=== PATIENT | male | born 1955 | race Asian ===

== ENCOUNTER 2024-01-18 16:46 | Inpatient (IN) | payer OTHER ==
[~2024-01-18] VITALS: Ht 182.9 cm; Wt 78.5 kg
[2024-01-18] MEDS: SODIUM CHLORIDE 0.9% 1,000 ML IV ONE ×2 (17:00→20:08)
[2024-01-18 17:39] LABS: BASOPHILS % 0.3 % (0.0-2.0); EOSINOPHILS % 0.5 % (0.0-5.0); HEMATOCRIT. 40.3 % (42.0-52.0); HEMOGLOBIN. 13.5 g/dL (14.0-18.0); LYMPHOCYTES % 7.4 % (20.0-50.0); MEAN CORPUSCULAR HEMOGLOBIN 31.9 pg (28.0-32.0); MEAN CORPUSCULAR HGB CONC 33.4 g/dL (31.0-37.0); MEAN CORPUSCULAR VOLUME 95.4 fL (80.0-94.0); MEAN PLATELET VOLUME 8.7 fl (7.4-10.4); MONOCYTES % 5.1 % (2.0-8.0); NEUTROPHILS % 86.7 % (40.0-76.0); PLATELET 171 x1000/uL (130-400); RED BLOOD CELL COUNT 4.23 mill/uL (4.7-6.1); RED CELL DISTRIBUTION WIDTH 14.9 % (11.6-14.6); WHITE BLOOD COUNT 8.1 x1000/uL (4.5-11.0)
[2024-01-18 17:44] LABS: CARBON DIOXIDE 25 mEq/L (21-32); CHLORIDE 103 mEq/L (98-107); POTASSIUM 3.4 mEq/L (3.5-5.1); SODIUM 136 mEq/L (136-145)
[2024-01-18 17:45] LABS: CALCIUM 10.2 mg/dL (8.7-10.4)
[2024-01-18 17:49] LABS: CREATININE 1.9 mg/dL (0.6-1.3); GLUCOSE 183 mg/dL (70-105)
[2024-01-18 17:50] LABS: UREA NITROGEN BLOOD 30 mg/dL (9-23)
[2024-01-18 17:51] LABS: ALANINE AMINOTRANSFERASE 12 IU/L (10-49); ALBUMIN 4.9 g/dL (3.2-4.8); ASPARTATE AMINOTRANSFERASE 21 IU/L (<34)
[2024-01-18 17:52] LABS: BILIRUBIN TOTAL 0.7 mg/dL (0.1-1.0); LACTIC ACID 2.5 mmol/L (0.4-2.0); PROTEIN TOTAL 7.9 g/dL (6.0-8.3); TROPONIN I HIGH SENSITIVITY 10 ng/L (3.0-53)
[2024-01-18] MEDS: PIPERACILLIN/TAZO 3.375G/50ML 50 ML IV SCH (18:47)
[2024-01-18] MEDS: VANCOMYCIN 1G PREMIX 200 ML IV SCH (19:58)
[2024-01-18] MEDS: ACETAMINOPHEN 325MG TABLET PO ONE (20:07)
[2024-01-18] MEDS: SODIUM CHLORIDE 0.9% 500 ML IV ONE (20:09)
[2024-01-18] MEDS ORDERED: ZOLPIDEM TARTRATE 5MG TABLET PO PRN (20:15)
[2024-01-18] MEDS ORDERED: ONDANSETRON HCL 4MG/2ML INJ IV PRN (20:15)
[2024-01-18] MEDS ORDERED: MAGNESIUM/ALUMINUM HYDROXIDE/SIMETHICONE 30ML UDC PO PRN (20:15)
[2024-01-18] MEDS ORDERED: CLONIDINE 0.1MG TABLET PO PRN (20:15)
[2024-01-18] MEDS ORDERED: NITROGLYCERIN 0.4MG TABLET SL SL PRN (20:15)
[2024-01-18] MEDS ORDERED: IPRATROPIUM/ALBUTEROL 0.5-3(2.5)MG/3ML NEB NEB PRN (20:15)
[2024-01-18] MEDS ORDERED: DOCUSATE SODIUM 100MG CAPSULE PO PRN (20:15)
[2024-01-18 20:58] LABS: IRON 24 ug/dL (65-175)
[2024-01-18 20:59] LABS: CREATINE KINASE MB FRACTION < 0.5 ng/mL (0.5-3.6); TRIGLYCERIDE 73 mg/dL (0-150)
[2024-01-18 21:00] LABS: LDL CHOLESTEROL 57 mg/dL (5-100)
[2024-01-18] MEDS: LISINOPRIL 20MG TABLET PO SCH (21:00)
[2024-01-18 21:01] LABS: CHOLESTEROL 151 mg/dL (<200); CREATINE KINASE 108 IU/L (46-171); HDL CHOLESTEROL 58 mg/dL (>55); TOTAL IRON BINDING CAPACITY 188 ug/dl (250-425)
[2024-01-18 21:03] LABS: FOLIC ACID (FOLATE) SERUM 13.66 ng/mL (>5.38)
[2024-01-18 21:04] LABS: THYROID STIMULATING HORMONE 0.42 uIU/mL (0.55-4.78)
[2024-01-18 21:06] LABS: VITAMIN B12 SERUM 457 pg/mL (211-911)
[2024-01-18] MEDS: GUAIFENESIN 600MG ER TABLET PO SCH (22:35)
[2024-01-18] MEDS: FAMOTIDINE 20MG TABLET PO SCH (22:35)
[2024-01-18] MEDS: ASCORBIC ACID 500 MG TABLET PO SCH (22:35)
[2024-01-18] MEDS: ENOXAPARIN 40MG/0.4ML SYR SUBCUT SCH (22:40)
[2024-01-18] MEDS: POTASSIUM CHLORIDE 20MEQ TABLET SR PO NR (22:41)
[2024-01-18] MEDS: VANCOMYCIN 1GM/200ML PMX (BAXTER) IV NR (22:53)
[2024-01-18] MEDS: INSULIN GLARGINE 100 UNITS/ML SUBCUT SCH (23:09)
[2024-01-18] MEDS: LACTATED RINGERS 1,000 ML IV SCH (23:10)
[2024-01-18 23:54] LABS: CREATINE KINASE 103 IU/L (46-171)
[2024-01-18 23:56] LABS: CREATINE KINASE MB FRACTION < 0.5 ng/mL (0.5-3.6); TROPONIN I HIGH SENSITIVITY 19 ng/L (3.0-53)
[2024-01-19] VITALS (14 sets, daily range): BP systolic 93–136; BP diastolic 47–78; PULSE 83–120; RESP 15–19; TEMP 36.28068–38.66976; O2SAT 94–99
[2024-01-19] MEDS: PIPERACILLIN/TAZO 3.375G/50ML 50 ML IV SCH (01:19)
[2024-01-19] MEDS: ACETAMINOPHEN 325MG TABLET PO PRN ×2 (04:14→23:50)
[2024-01-19 05:40] LABS: CHLORIDE 108 mEq/L (98-107); POTASSIUM 3.7 mEq/L (3.5-5.1); SODIUM 139 mEq/L (136-145)
[2024-01-19 05:44] LABS: CALCIUM 8.8 mg/dL (8.7-10.4); CARBON DIOXIDE 24 mEq/L (21-32)
[2024-01-19 05:49] LABS: CREATININE 1.7 mg/dL (0.6-1.3); GLUCOSE 70 mg/dL (70-105); UREA NITROGEN BLOOD 27 mg/dL (9-23)
[2024-01-19 05:50] LABS: ALANINE AMINOTRANSFERASE 16 IU/L (10-49); ASPARTATE AMINOTRANSFERASE 24 IU/L (<34)
[2024-01-19 05:51] LABS: ALBUMIN 3.7 g/dL (3.2-4.8); BILIRUBIN TOTAL 0.8 mg/dL (0.1-1.0); PHOSPHORUS 2.3 mg/dL (2.5-4.9)
[2024-01-19 05:52] LABS: PROTEIN TOTAL 6.1 g/dL (6.0-8.3)
[2024-01-19 06:19] LABS: BASOPHILS % 0.3 % (0.0-2.0); CREATINE KINASE MB FRACTION 0.5 ng/mL (0.5-3.6); EOSINOPHILS % 0.7 % (0.0-5.0); HEMATOCRIT. 34.7 % (42.0-52.0); HEMOGLOBIN. 11.6 g/dL (14.0-18.0); MEAN CORPUSCULAR HEMOGLOBIN 31.4 pg (28.0-32.0); MEAN CORPUSCULAR HGB CONC 33.3 g/dL (31.0-37.0); MEAN CORPUSCULAR VOLUME 94.2 fL (80.0-94.0); MEAN PLATELET VOLUME 9.7 fl (7.4-10.4); PLATELET 146 x1000/uL (130-400); RED BLOOD CELL COUNT 3.68 mill/uL (4.7-6.1); RED CELL DISTRIBUTION WIDTH 14.7 % (11.6-14.6); WHITE BLOOD COUNT 9.4 x1000/uL (4.5-11.0)
[2024-01-19] MEDS: LACTATED RINGERS 1,000 ML IV NR (07:00)
[2024-01-19] MEDS: INSULIN LISPRO 100 UNITS/ML SUBCUT SCH (08:00)
[2024-01-19] MEDS: BLOOD SUGAR DIAGNOSTIC STRIP TEST SCH (08:25)
[2024-01-19] MEDS: DEXTROSE 50% WATER 50ML SYRINGE IV PRN (08:36)
[2024-01-19] MEDS: ASPIRIN 81MG EC TABLET PO SCH (08:45)
[2024-01-19] MEDS ORDERED: SITA100T11 MT (10:01)
[2024-01-19] MEDS ORDERED: FLUT15.844 BOTHNSTRLS (10:01)
[2024-01-19] MEDS ORDERED: ROSU40TA MT (10:01)
[2024-01-19] MEDS ORDERED: TC1C15 TP (10:01)
[2024-01-19] MEDS ORDERED: LORA10TA7 MT (10:01)
[2024-01-19] MEDS ORDERED: LOSA1TAB34 MT (10:01)
[2024-01-19] MEDS ORDERED: TRAZ-251 MT (10:01)
[2024-01-19] MEDS ORDERED: PIOG30TA10 MT (10:01)
[2024-01-19] MEDS ORDERED: ERGO1250 (10:01)
[2024-01-19] MEDS ORDERED: EMPA10TA MT (10:01)
[2024-01-19] MEDS ORDERED: GABA-529 MT (10:01)
[2024-01-20] VITALS (12 sets, daily range): BP systolic 110–164; BP diastolic 64–91; PULSE 86–115; RESP 14–20; TEMP 36.55848–38.55864; O2SAT 93–100
[2024-01-20 06:09] LABS: CHLORIDE 111 mEq/L (98-107); POTASSIUM 3.7 mEq/L (3.5-5.1); SODIUM 142 mEq/L (136-145)
[2024-01-20 06:12] LABS: CARBON DIOXIDE 24 mEq/L (21-32)
[2024-01-20 06:13] LABS: CALCIUM 9.1 mg/dL (8.7-10.4)
[2024-01-20 06:16] LABS: BASOPHILS % 0.2 % (0.0-2.0); HEMATOCRIT. 34.6 % (42.0-52.0); HEMOGLOBIN. 11.3 g/dL (14.0-18.0); LYMPHOCYTES % 14.6 % (20.0-50.0); MEAN CORPUSCULAR HEMOGLOBIN 30.9 pg (28.0-32.0); MEAN CORPUSCULAR HGB CONC 32.6 g/dL (31.0-37.0); MEAN CORPUSCULAR VOLUME 94.7 fL (80.0-94.0); MEAN PLATELET VOLUME 9.7 fl (7.4-10.4); MONOCYTES % 8.9 % (2.0-8.0); NEUTROPHILS % 74.3 % (40.0-76.0); PLATELET 144 x1000/uL (130-400); RED BLOOD CELL COUNT 3.65 mill/uL (4.7-6.1); RED CELL DISTRIBUTION WIDTH 14.9 % (11.6-14.6); WHITE BLOOD COUNT 9.7 x1000/uL (4.5-11.0)
[2024-01-20 06:18] LABS: CREATININE 1.8 mg/dL (0.6-1.3); GLUCOSE 111 mg/dL (70-105); UREA NITROGEN BLOOD 22 mg/dL (9-23)
[2024-01-20 06:19] LABS: ALANINE AMINOTRANSFERASE 16 IU/L (10-49); ALBUMIN 3.8 g/dL (3.2-4.8); ASPARTATE AMINOTRANSFERASE 21 IU/L (<34)
[2024-01-20 06:20] LABS: BILIRUBIN TOTAL 0.6 mg/dL (0.1-1.0); PHOSPHORUS 2.8 mg/dL (2.5-4.9); PROTEIN TOTAL 6.2 g/dL (6.0-8.3)
[2024-01-20] MEDS ORDERED: VANCOMYCIN 1G PREMIX 200 ML IV SCH (09:00)
[2024-01-20] MEDS: VANCOMYCIN 1000MG/250ML 250 ML IV SCH (09:24)
[2024-01-20] MEDS: GUAIFENESIN 200MG/10ML SUGAR FREE UDC PO PRN (17:27)
[2024-01-21] VITALS (9 sets, daily range): BP systolic 125–163; BP diastolic 73–99; PULSE 92–135; RESP 17–22; TEMP 36.9474–37.44744; O2SAT 94–97
[2024-01-21 06:45] LABS: CALCIUM 9.3 mg/dL (8.7-10.4); POTASSIUM 3.5 mEq/L (3.5-5.1)
[2024-01-21 06:51] LABS: CREATININE 1.6 mg/dL (0.6-1.3)
[2024-01-22] VITALS: BP 132/83; PULSE 109; RESP 23; TEMP 37.2252; O2SAT 95
[2024-01-22 04:00] VITALS: BP 166/93; PULSE 121; RESP 23; TEMP 37.16964
[2024-01-22 08:00] VITALS: BP 136/82; PULSE 91; RESP 19; TEMP 36.55848
[2024-01-22 10:00] VITALS: BP 161/79; PULSE 115; RESP 23
[2024-01-22] MEDS ORDERED: LEVO750T68 MT (11:19)
[2024-01-22 11:51] VITALS: BP 161/79; PULSE 115; TEMP 98.6; O2SAT 94
== END 2024-01-22 14:58 | disposition home or self-care (01) | DRG 871 ==
LOC: ER 16:46 → 5EST 19:53 → EDBEDREQ 20:08 → EDBEDREQSVC 20:08 → EDBEDREQTM 20:08
PROVIDERS: ADMIT Internal Medicine; ATTEND Internal Medicine
DX: A41.9 Sepsis, unspecified organism (principal); N17.0 Acute kidney failure with tubular necrosis; R65.20 Severe sepsis without septic shock; E11.9 Type 2 diabetes mellitus without complications; D63.8 Anemia in other chronic diseases classified elsewhere; Z20.822 Contact with and (suspected) exposure to COVID-19; E87.6 Hypokalemia; I10 Essential (primary) hypertension; Z79.4 Long term (current) use of insulin; Z79.84 Long term (current) use of oral hypoglycemic drugs
CPT/HCPCS: 36415; 71045; 72141; 72146; 72148; 76770; 80048; 80053; 80061; 80202; 82550; 82553; 82607; 82746; 82962; 83036; 83540; 83550; 83605; 83735; 83880; 84100; 84145; 84439; 84443; 84484; 85025; 85379; 87426; 93005; 93306; 93970; 97162; 97166; 99291; J1650; J1815; J2543; J3370; J7030; J7040